=== PATIENT | female | born 1980 | race Caucasian/White ===

== ENCOUNTER 2016-07-20 14:05 | Emergency (ER) | payer OTHER ==
[2016-07-20 14:12] VITALS: BP 105/71
[2016-07-20] MEDS ORDERED: Bacitracin/Neomycin/Polymyxin B Oint 0.9 GM U/D Packet TOP ONE (14:52)
--- NOTE | 2016-07-20 14:58 | EDM.PDOC ---
ED HPI GENERAL MEDICAL PROBLEM - General Chief Complaint: Laceration Stated Complaint: RIGHT 4TH DIGIT LACERATION Time Seen by Provider: 07/20/16 14:26 Source of Information: Reports: Patient History Limitations: Reports: No Limitations - History of Present Illness INITIAL COMMENTS - FREE TEXT/NARRATIVE: 0.5cm laceration to dorsal aspect of right 4th digit due to [employer] at home. Able to move finger, no numbness. No other complaints. Uncertain as to when last tetanus shot was given. - Related Data Allergies Allergy/AdvReac Type Severity Reaction Status Date / Time No Known Allergies Allergy Verified 07/20/16 14:12 Home Meds: Home Meds . [No Known Home Meds] 07/20/16 [History] Past Medical History - Infectious Disease History Infectious Disease History: Reports: Chicken Pox Social & Family History - Tobacco Use Smoking Status *Q: Never Smoker - Caffeine Use Caffeine Use: Reports: Coffee - Recreational Drug Use Recreational Drug Use: No ED ROS GENERAL - Review of Systems Review Of Systems: ROS reveals no pertinent complaints other than HPI. ED EXAM, SKIN/RASH Exam: See Below Exam Limited By: No Limitations General Appearance: Alert, WD/WN, Anxious Head: Atraumatic, Normocephalic Respiratory/Chest: No Respiratory Distress Extremities: Other (laceration dorsal proximal 4th digit on right hand. No active bleeding. ) Neurological: Normal Cognition, No Motor/Sensory Deficits Psychiatric: Anxious Skin: Warm, Dry ED SKIN PROCEDURES - Laceration/Wound Repair Right Proximal Dorsal Finger Lac/wound length in cm: 0.5 Appearance: subcutaneous Distal NVT: neuro & vascular intact, no tendon injury Anesthetic Type: local Local anesthesia - Lidocaine (Xylocaine): 1% plain Local anesthetic volume: 2cc Skin prep: providone-iodine (betadine), sterile drape Exploration/Debridement/Repair: wound explored, in a bloodless field, explored to base Closed with: sutures Suture size: 4-0 # of sutures: 2 Suture type: nylon, interrupted Drain placement: No Sterile dressing applied: nurse Tetanus status addressed: Yes Complications: No Course - Vital Signs Last Recorded V/S: Last Vital Signs Temp 36.4 C 07/20/16 14:06 Pulse 72 07/20/16 14:06 Resp 20 07/20/16 14:06 BP 105/71 07/20/16 14:06 Pulse Ox 100 07/20/16 14:06 - Orders/Labs/Meds Orders: Medication Orders Neomycin/Polymyxin/Bacitracin (Triple Antibiotic Oint) 1 each TOP ONETIME ONE Stop: 07/20/16 14:53 Meds: Medications Generic Name Dose Route Start Last Admin Trade Name Freq PRN Reason Stop Dose Admin Neomycin/Polymyxin/Bacitracin 1 each 07/20/16 14:52 Triple Antibiotic Oint TOP 07/20/16 14:53 ONETIME ONE Discontinued Medications Generic Name Dose Route Start Last Admin Trade Name Freq PRN Reason Stop Dose Admin Lidocaine HCl 5 ml 07/20/16 14:37 07/20/16 14:43 Xylocaine-Mpf 1% INJECT 07/20/16 14:38 5 ml ONETIME ONE Administration - Re-Assessments/Exams Free Text/Narrative Re-Assessment/Exam: 07/20/16 15:00 Laceration repaired. Patient call her primary clinic tomorrow and check on tetanus status. She will obtain tetanus booster if indicated. Wound care discussed. Departure - Departure Time of Disposition: 15:01 Disposition: Home, Self-Care 01 Condition: good Clinical Impression: Finger laceration Qualifiers: Encounter type: initial encounter Qualified Code(s): S61.219A - Laceration without foreign body of unspecified finger without damage to nail, initial encounter - Discharge Information Instructions: Stitches, Wesly, or Adhesive Wound Closure, [id number] Forms: ED Department Discharge Additional Instructions: Sutures out in 7-8 days. Watch for infection and follow up if there are any concerns. Check on tetanus status tomorrow with your primary clinic and obtain booster if indicated.
== END 2016-07-20 15:13 | disposition home or self-care (01) ==
LOC: LL.ED 14:05 → MERGE 14:05 → LL.ED 15:13
DX: S61.214A Laceration without foreign body of right ring finger without damage to nail, initial encounter (principal); Y29.XXXA Contact with blunt object, undetermined intent, initial encounter; Y92.009 Unspecified place in unspecified non-institutional (private) residence as the place of occurrence of the external cause
CPT/HCPCS: 12001; 99283